=== PATIENT | female | born 1965 | race Caucasian/White ===

== ENCOUNTER 2018-05-07 21:07 | Emergency (ER) | payer OTHER ==
[~2018-05-07] VITALS: Ht 160 cm; Wt 65.8 kg
[2018-05-08] MEDS ORDERED: LISINOPRIL20 MG PO (00:11)
== END 2018-05-08 00:35 | disposition home or self-care (01) ==
LOC: ED 21:07
DX: S80.11XA Contusion of right lower leg, initial encounter (principal); I10 Essential (primary) hypertension; W11.XXXA Fall on and from ladder, initial encounter; Y93.89 Activity, other specified; Y92.89 Other specified places as the place of occurrence of the external cause; Y99.9 Unspecified external cause status